=== PATIENT | female | born 1940 | race Caucasian/White ===

== ENCOUNTER → 2016-10-22 | Outpatient (CLI) | payer OTHER | LOC: FIMAGING 13:54 | PROVIDERS: ATTEND Family Medicine | DX: M25.562 Pain in left knee (principal); M25.462 Effusion, left knee; M51.36 Other intervertebral disc degeneration, lumbar region; M54.10 Radiculopathy, site unspecified; R91.1 Solitary pulmonary nodule; Z79.899 Other long term (current) drug therapy ==

== ENCOUNTER → 2016-12-02 | Outpatient (CLI) | payer OTHER | LOC: FIMAGING 08:35 | PROVIDERS: ATTEND Family Medicine | DX: R91.8 Other nonspecific abnormal finding of lung field (principal); E04.2 Nontoxic multinodular goiter ==

== ENCOUNTER → 2017-01-01 | Outpatient (CLI) | payer OTHER | LOC: FIMAGING 08:01 | PROVIDERS: ATTEND Physical Medicine & Rehabilitation | DX: S83.282A Other tear of lateral meniscus, current injury, left knee, initial encounter (principal); S83.242A Other tear of medial meniscus, current injury, left knee, initial encounter; R60.0 Localized edema; M25.462 Effusion, left knee ==

== ENCOUNTER 2017-01-21 07:18 | Day surgery (SDC) | payer OTHER ==
[2017-01-21] MEDS ORDERED: MIDAZOLAM 2 MG/2 ML VIAL IVP PRN (07:32)
[2017-01-21] MEDS ORDERED: fentaNYL 100 MCG/2 ML INJ IVP PRN (07:32)
[2017-01-21] MEDS ORDERED: MEPERIDINE 25 MG/ML SYR IVP PRN (07:32)
[2017-01-21] MEDS ORDERED: ALTEPLASE 2 MG VIAL IVP PRN (07:32)
[2017-01-21] MEDS ORDERED: FLUMAZENIL 0.5 MG/5 ML MDV IVP PRN (07:32)
[2017-01-21] MEDS ORDERED: NALOXONE HCL 0.4 MG/ML INJ IVP PRN (07:32)
[2017-01-21] MEDS ORDERED: NS 1,000 ML IV SCH (07:45)
[2017-01-21 07:57] VITALS: PULSE 80; RESP 19
[2017-01-21 08:06] VITALS: TEMP 99.1
--- NOTE | 2017-01-21 09:17 | PDPROPOC ---
Sedation Plan of Care Sedation Plan of Care: vital signs stable ASA Classification: ASA 2 Planned drugs: fentanyl, midazolam Mallampati Score: Class 2 Mallampati Reference Image: Patient passed 3-3-2 rule?: Yes
--- NOTE | 2017-01-21 09:17 | PDGENHP ---
History & Physical Chief Complaint: Left upper lobe lung lesion History of Present Illness: Left upper lobe lung lesion. pt otherwise asymptomatic. Pertinent Past, Social, Family History: non smoker Relevant Physical Exam: clear lungs, RRR Cardiorespiratory Assessment: RRR & clear lungs
--- NOTE | 2017-01-21 11:23 | PDRADPN ---
Radiology Procedure Note Date of Procedure: 01/21/17 Radiologist: Venu Quintero Licensed Master Social Worker(s): Hernando Orozco rehabilitation team lead Anesthesia: IV Sedation (fentanyl and versed) Pre-op Diagnosis: left upper lobe pulmonary nodule Post-op Diagnosis: same Indication: left upper lobe pulmonary nodule Procedure: CT guided left upper lobe biopsy Finding(s): 1. pulmonary hemorrage and tiny pneumothorax on CT Inf/Abcess present in the surg proc area at time of surgery?: No EBL: Minimal (less than 5cc) Complications: tiny pneumothorax and pulmonary hemorrhage at bx site in left upper lobe Specimen(s): 18 ga cores x 3, wet prep cellular
[2017-01-21 14:15] VITALS: BP 135/84; O2SAT 92
== END 2017-01-21 14:25 | disposition home or self-care (01) ==
LOC: FLAB 07:18 → FIMAGING 14:25
PROVIDERS: ATTEND Internal Medicine Hematology & Oncology
PROC: 0BBG3ZX Excision of Left Upper Lung Lobe, Percutaneous Approach, Diagnostic (ICD-10-PCS; principal; 2017-01-21 10:50)
DX: C34.12 Malignant neoplasm of upper lobe, left bronchus or lung (principal); E03.9 Hypothyroidism, unspecified; E21.0 Primary hyperparathyroidism; J95.811 Postprocedural pneumothorax; J95.830 Postprocedural hemorrhage of a respiratory system organ or structure following a respiratory system procedure
CPT/HCPCS: J2250; J2310; J3010

== ENCOUNTER → 2017-01-25 | Outpatient (CLI) | payer OTHER | LOC: FIMAGING 14:25 | PROVIDERS: ATTEND Internal Medicine Hematology & Oncology | DX: E04.9 Nontoxic goiter, unspecified (principal) ==

== ENCOUNTER 2017-02-08 05:22 | Inpatient (IN) | payer OTHER ==
[2017-02-08] MEDS ORDERED: LIDOCAINE 1% 2 ML INJ ID PRN (06:01)
[2017-02-08] MEDS ORDERED: LR 1,000 ML IV ONE (06:01)
[2017-02-08] MEDS ORDERED: BUPIVACAINE 0.5% 30 ML SDV ONE (06:31)
[2017-02-08] MEDS ORDERED: ceFAZolin 2 GM/SWFI 2 GM/20 ML SYR IVP ONE (06:36)
[2017-02-08 06:44] LABS: ALANINE AMINOTRANSFERASE 29 IU/L (9-52); ALKALINE PHOSPHATASE 94 IU/L (38-126); ANION GAP 11 mEq/L (8-16); ASPARTATE AMINOTRANSFERASE 27 IU/L (14-46); BILIRUBIN,TOTAL 0.5 mg/dL (0.1-1.4); CALCIUM 9.7 mg/dL (8.5-10.4); CARBON DIOXIDE 26 mEq/l (22-31); CHLORIDE 107 mEq/L (97-110); CREATININE 0.6 mg/dL (0.6-1.0); GLOMERULAR FILTRATION RATE > 60; GLUCOSE 95 mg/dL (70-100); POTASSIUM 4.3 mEq/L (3.5-5.2); SODIUM 144 mEq/L (134-144); TOTAL PROTEIN 6.9 g/dL (6.3-8.2)
--- NOTE | 2017-02-08 06:45 | PDANEPAE ---
ANE History of Present Illness 76 year old female w/ newly diagnosed lung CA presents for VATS w/ left upper lobectomy. ANE Past Medical History - Cardiovascular History Hx Hypertension: No Hx Arrhythmias: No Hx Chest Pain: No Hx Coronary Artery / Peripheral Vascular Disease: No Hx CHF / Valvular Disease: No Hx Palpitations: No - Pulmonary History Hx COPD: No Hx Asthma/Reactive Airway Disease: No Hx Recent Upper Respiratory Infection: No Hx Oxygen in Use at Home: Yes O2 in Use at Home (L/minute): 2.L Hx Sleep Apnea: Yes Sleep Apnea Screening Result - Last Documented: Positive Pulmonary History Comment: JAREK, does not use machine - Neurologic History Hx Cerebrovascular Accident: No Hx Seizures: No Hx Dementia: No - Endocrine History Hx Diabetes: No Obesity: no - Renal History Hx Renal Disorders: No - Liver History Hx Hepatic Disorders: No - Neurological & Psychiatric Hx Hx Neurological and Psychiatric Disorders: Yes Neurological / Psychiatric History Comment: anxiety - Cancer History Hx Cancer: Yes Cancer History Comment: new diagnosis - Congenital Disorder History Hx Congenital Disorders: No - GI History Hx Gastrointestinal Disorders: No - Other Health History Other Health History: none - Chronic Pain History Chronic Pain: Yes (left knee) - Surgical History Prior Surgeries: r hip replace 5 years. c section. parathroid. appy. tonsils adenoids ANE Review of Systems Review of systems is: negative Review of Systems: - Exercise capacity Exercise capacity: >=4 METS METS (RN): 4 METS ANE Patient History - Allergies Allergies/Adverse Reactions: ciprofloxacin [From Cipro] Allergy (Severe, Verified 02/05/17 15:52) HIVES, RASH ciprofloxacin HCl [From Cipro] Allergy (Severe, Verified 02/05/17 15:52) HIVES, RASH Iodinated Contrast- Oral and IV Dye Allergy (Severe, Verified 02/08/17 06:05) Sulfa (Sulfonamide Antibiotics) Allergy (Severe, Verified 02/05/17 15:52) HIVES, RASH - Home Medications Home medications: home medication list seen and reviewed Home Medications: Mirtazapine [Remeron] 30 mg PO HS 02/05/17 [Last Taken 02/07/17 21:00] Naproxen Sodium [Aleve 220 MG (*)] 440 mg PO DAILY PRN 02/05/17 [Last Taken ] RX: Levothyroxine Sodium 100 mcg PO DAILY 02/05/17 [Last Taken 02/08/17 04:15] Symbicort 80-4.5 Mcg Inhaler 02/05/17 [Last Taken 02/07/17] traMADol [Ultram 50 mg (*)] 50 - 100 mg PO Q6 PRN 02/05/17 [Last Taken 02/07/17 21:00] - NPO status NPO Status: no food or drink >8 hours NPO Since - Liquids (Date): 02/07/17 NPO Since - Liquids (Time): 21:00 NPO Since - Solids (Date): 02/07/17 NPO Since - Solids (Time): 18:00 - Anes Hx Anes Hx: no prior problems - Smoking Hx Smoking Status: Never smoked - Family Anes Hx Family Anes Hx: neg - N/A Family Hx Anesthesia Complications: none ANE Labs/Vital Signs - Labs Result Diagrams: 02/08/17 06:15 - Vital Signs Vital Signs: reviewed preoperatively; see RN documention for details Blood Pressure: 109/68 Heart Rate: 89 Respiratory Rate: 20 O2 Sat (%): 95 Height: 165.1 cm Weight: 61.235 kg ANE Physical Exam - Airway Neck exam: FROM Mallampati Score: Class 2 Mouth exam: normal dental/mouth exam - Pulmonary Pulmonary: no respiratory distress - Cardiovascular Cardiovascular: regular rate and rhythym - ASA Status ASA Status: III ANE Anesthesia Plan Anesthesia Plan: general endotracheal anesthesia (Possible arterial line. Epidural for POPC if converted from VATS to open thoracotomy.), epidural (Will consent for epidural for post-op pain control should surgery transition from VATS to thoracotomy.) Lines/Monitors: arterial line, additional IV Specialized Airway: double lumen tube, video laryngoscope Total IV Anesthesia: No
[2017-02-08] MEDS ORDERED: MIDAZOLAM 2 MG/2 ML VIAL IVP ONE (07:01)
[2017-02-08] MEDS ORDERED: MIDAZOLAM 2 MG/2 ML VIAL ONE (07:02)
[2017-02-08] MEDS ORDERED: PROPOFOL 200 MG/20 ML VIAL ONE (07:04)
[2017-02-08] MEDS ORDERED: fentaNYL 100 MCG/2 ML INJ ONE ×3 (07:04→11:08)
[2017-02-08] MEDS ORDERED: LIDOCAINE 2% 5 ML SDV ONE (07:05)
[2017-02-08] MEDS ORDERED: ROCURONIUM 50 MG/5 ML VIAL ONE (07:05)
[2017-02-08] MEDS ORDERED: PHENYLEPHRINE HCL 100 MCG/ML SYR ONE (07:05)
--- NOTE | 2017-02-08 07:54 | PDHPUP ---
History & Physical Update H&P update statement: This history and physical update is based on an assessment of the patient which was completed after admission or registration (within 24 hours), but prior to the surgery/procedure. H&P update: H&P reviewed & patient examined, no change in patient's condition since H&P completed
[2017-02-08] MEDS ORDERED: ONDANSETRON 4 MG/2 ML VIAL IVP PRN ×2 (08:32→10:36)
[2017-02-08] MEDS ORDERED: NALOXONE HCL 0.4 MG/ML INJ IVP PRN (08:32)
[2017-02-08] MEDS ORDERED: LABETALOL HCL 5 MG/ML 20 ML MDV IVP PRN (08:32)
[2017-02-08] MEDS ORDERED: LR 500 ML IV PRN (08:32)
[2017-02-08] MEDS ORDERED: ACETAMINOPHEN 500 MG TAB PO PRN (08:32)
[2017-02-08] MEDS ORDERED: SUGAMMADEX SODIUM 200 MG/2 ML VIAL IVP ONE (09:42)
--- NOTE | 2017-02-08 10:40 | POSTOPPROG ---
Post Op Note Date of Operation: 02/08/17 Surgeon: Camilo Rowan Custodial Maintenance Worker: Tania Rachel Anesthesiologist: Gage Olmos Anesthesia: GET(General Endotracheal) Pre-op Diagnosis: JULIA lung cancer Post-op Diagnosis: same Procedure: L VATS c JULIA lobectomy and hilar LN biopsies Findings: tumor in specimen, bronchial margin clear on froz., poorly defined fissure Inf/Abcess present in the surg proc area at time of surgery?: No EBL: 50-100 Complications: none Drains: Other (2 28 Fr Chest tubes)
[2017-02-08] MEDS ORDERED: HYDROmorphONE/DILAUDID 1 MG/ML INJ ONE ×2 (11:08→11:39)
[2017-02-08] MEDS: fentaNYL 100 MCG/2 ML INJ IVP PRN ×2 (11:12→11:18)
[2017-02-08] MEDS: HYDROmorphONE/DILAUDID 1 MG/ML INJ IVP PRN ×8 (11:14→18:44)
[2017-02-08] MEDS: OXYCODONE/APAP 5/325 TAB PO PRN ×2 (12:48→16:42)
[2017-02-08] MEDS: BUPIVACAINE 0.5% 30 ML SDV MISC SCH ×3 (14:29→23:11)
--- NOTE | 2017-02-08 15:36 | POSTANESTH ---
Post Anesthetic Evaluation Cardiovascular Status: Normal, Stable, Similar to Pre-Op Cond Respiratory Status: Normal, Stable, Similar to Pre-op Cond. Level of Consciousness/Mental Status: Can Participate in Eval, Alert and Oriented Pain Control: Adequate, Prn Tx Ordered Nausea/Vomiting Control: Adequate, Prn Tx Ordered Complications Possibly Related to Anesthesia: None Noted
--- NOTE | 2017-02-08 16:19 | ASMTCMCOM ---
CM Note CM Note Notes: 76 year old female admitted for L UL adenocarcinoma. She has a hx of JAREK, IBS, Insomnia, Anxiety/Depression. Patient to have a VATS procedure, lobectomy possible thoracotomy. CM to follow for discharge needs. Date Signed: 02/08/2017 04:18 PM Electronically Signed By:Judi Mart LCSW
[2017-02-08] MEDS: ONDANSETRON 4 MG/2 ML VIAL IVP PRN (18:10)
[2017-02-08] MEDS: DOCUSATE SODIUM 100 MG CAP PO SCH (19:55)
[2017-02-08] MEDS: MIRTAZAPINE 30 MG TAB PO SCH (19:55)
[2017-02-08] MEDS: NS 1,000 ML IV SCH (20:06)
[2017-02-08] MEDS: BUDESONIDE/FORMOTEROL 80/4.5 60 PUFFS/MDI IH SCH (20:34)
--- NOTE | 2017-02-08 21:43 | SOAPPROG ---
SOAP Progress Note Assessment/Plan: Assessment: POSTOP ALERT, BP SOFT, UO GOOD, CHEST TUBE WITH MINIMAL LEAK AND MODERATE DRAINAGE/ PAIN CONTROL GOOD CXR WELL EXPANDED Plan:FLUID BOLUS/ CHECK HCT 02/08/17 21:41 Objective: Vital Signs Temp Pulse Resp BP Pulse Ox 36.5 C 80 20 104/56 L 99 02/08/17 19:00 02/08/17 20:41 02/08/17 20:41 02/08/17 19:00 02/08/17 19:00 Laboratory Results 02/08/17 06:15 02/07/17 02/08/17 02/09/17 05:59 05:59 05:59 Intake Total 1070 Output Total 420 Balance 650 ICD10 Worksheet Patient Problems: Problems Problem Status Onset Lung cancer Acute - ICD10 Problem Qualifiers (1) Lung cancer Qualifiers: Laterality: left Lung location: upper lobe of lung Qualified Code(s): C34.12 - Malignant neoplasm of upper lobe, left bronchus or lung
[2017-02-08 22:00] LABS: HEMATOCRIT 35.4 % (38.0-47.0); HEMOGLOBIN 11.7 g/dL (12.6-16.3)
--- NOTE | 2017-02-08 23:16 | GOP ---
[f rep st] OPERATIVE REPORT DATE OF OPERATION: SURGEON: Camilo Rowan MD OUTSIDE COLLECTOR: Tania Rachel, CARIDAD ANESTHESIOLOGIST: Gage Olmos MD. PREOPERATIVE DIAGNOSIS: Left upper lobe lung cancer. POSTOPERATIVE DIAGNOSIS: Left upper lobe lung cancer. PROCEDURE PERFORMED: 1. Video-assisted thoracoscopic surgery left upper lobectomy. 2. Video-assisted thoracoscopic surgery hilar node dissection. FINDINGS: The patient was found to have a 1.5 cm tumor in the posterior aspect of the left upper lob e. There was no evidence of any metastatic disease. Lymph nodes in the hilum appeared to be benign. Final path is pending. ESTIMATED BLOOD LOSS: Approximately 200 cc. DESCRIPTION OF PROCEDURE: Patient taken to the operating room, where she received satisfactory gener al endotracheal anesthesia by Dr. Olmos. She was placed in the right lateral decubitus position aft er placement of a double-lumen endotracheal tube and an arterial line. Prepped and draped in the usu al sterile fashion. A short incision was made in the 7th intercostal space in the midaxillary line. A trocar was introduced. Good visualization was obtained. Two other trocars placed up higher in th e chest anteriorly and posteriorly. The lungs were evaluated. Unfortunately, she had a complete fus ion of her fissures, requiring complete dissection of the major fissure all the way down. This was c arefully done as well as possible. The main pulmonary artery was identified. Branches to the lingul a and to the posterior segment of the upper lobe were identified. These were dissected free and divi ded with the Endo-TULIO stapler. The lung was then rolled more posteriorly and the anterior pleura was opened and divided over the apical and anterior branches to the upper lobe. These were also dissect ed free and eventually divided with the Endo-TULIO stapler. The superior pulmonary vein was then disse cted free. It too was encircled and then divided with the Endo-TULIO stapler. All staple lines appear ed to be hemostatic. The upper lobe bronchus was then isolated and encircled. It was crossclamped a nd then the lower lobe was ventilated and appeared to ventilate perfectly fine so the bronchus was th en stapled and divided with the Endo-TULIO stapler. Remaining connections of the fissure up above this area were also divided with the Endo-TULIO stapler. The lung was placed in a specimen bag. One of th e trocar sites was enlarged, and the lung was brought out through that. It was sent to Pathology for evaluation and appeared to have clear margins. The wound was examined. The lung was tested and the re appeared to be no leak in the bronchial closure, but there was an air leak in the apical segment o f the lower lobe. This was attempted to be sutured, but met with a significant amount of bleeding an d that attempt was discontinued. The bleeding was tamponaded and stopped. It was covered with some Damaso powder. Multiple hilar nodes were dissected free and removed and sent to Pathology. 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 Final path is pending. Two 28 chest tubes were brought in through some of the trocar sites and placed in the apex of the deirdre st anteriorly and posteriorly. A Marcaine catheter was brought in through a separate stab incision a nd placed posteriorly for later Marcaine infusions. The chest was then closed with a running 0 Vicry l suture for the muscular layers over the mini incision, that was closed with 3-0 Vicryl for the subc u and 4-0 Monocryl subcuticular stitch for the skin. The remaining trocar site was also closed with 4-0 Monocryl. All wounds were infiltrated with 0.5% Marcaine. Chest tubes were secured to the skin with silk sutures, as was the Marcaine catheter. She tolerated the procedure quite well. COMPLICATIONS: None. /[id number]/MODL
[2017-02-09] MEDS: HYDROmorphONE/DILAUDID 1 MG/ML INJ IVP PRN ×5 (00:30→10:08)
[2017-02-09] MEDS: OXYCODONE/APAP 5/325 TAB PO PRN ×4 (02:14→21:54)
[2017-02-09] MEDS: BUPIVACAINE 0.5% 30 ML SDV MISC SCH ×5 (02:39→14:27)
--- NOTE | 2017-02-09 03:03 | GCON ---
[f rep st] CONSULTATION GOLD LETTERER CONSULTATION REASON FOR ADMISSION: Status post left upper lobectomy. HISTORY OF PRESENT ILLNESS: The patient is a very pleasant 76-year-old white female with a past medi daniel history including irritable bowel syndrome, obstructive sleep apnea, dysphagia, primary hyperpara thyroidism, pulmonary hypertension, depression, anxiety. She underwent a left upper lobectomy for faiza ng cancer that was diagnosed by needle biopsy. She is a patient of Dr. Juana Zuniga. In discussion w ith the patient, she states that with the exception of back pain, she is doing quite well. She does have trouble taking a deep breath secondary to pain. There is no cough or productive sputum. She de nies any fever or night sweats. There is no nausea, vomiting, or diarrhea. PAST MEDICAL HISTORY: Again, significant for anxiety, depression, hypothyroidism, irritable bowel sy ndrome, obstructive sleep apnea, primary hyperparathyroidism, pulmonary hypertension. PAST SURGICAL HISTORY: Has had a left parathyroidectomy, hip replacement, and arthroscopic knee surg yamilex. ALLERGIES: To Cipro, iodine, sulfa. FAMILY HISTORY: Significant for colon cancer and congestive heart failure. MEDICATIONS: At home include Aleve, Imodium, mirtazapine, Symbicort, Synthroid, vitamin B12, vitamin D3. PHYSICAL EXAM: VITAL SIGNS: Blood pressure 123/59, pulse is 77, respiration 18, she is afebrile. O xygen saturation 100% on 4 L. GENERAL: She is a thin, well-developed, elderly white female, who is resting comfortably in no acute distress. HEENT: Eyes are PERRLA, EOMI. Throat shows no erythema o r tonsillar hypertrophy. NECK: Supple. No cervical adenopathy. HEART: Regular rate and rhythm wi thout murmurs, rubs, or gallops. LUNGS: Diminished breath sounds. A few crackles on the left, but no wheeze. ABDOMEN: Soft, nontender. Bowel sounds are present in all 4 quadrants. EXTREMITIES: N o clubbing, cyanosis, or edema. LABORATORIES: White count is 144, potassium 4.3, chloride 107, CO2 is 26, BUN 16, creatinine 0.6, gl ucose is 95. Chest x-ray shows no evidence of pneumothorax. There is subcu emphysema. IMPRESSION: 1. Lung cancer. 2. Status post left upper lobectomy. 3. Pain adequately controlled. 4. Hyperparathyroidism. 5. Hypothyroidism. 6. Anxiety and depression. 7. History of asthma. RECOMMENDATIONS: 1. Adequate pain control. 2. Deep venous thrombosis and pulmonary embolism prophylaxis. 3. Stress ulcer prophylaxis. 4. Nebulized using both albuterol and Atrovent. 5. Early ambulation. /[id number]/MODL
[2017-02-09 05:01] LABS: HEMATOCRIT 36.7 % (38.0-47.0)
[2017-02-09 05:21] LABS: ANION GAP 8 mEq/L (8-16); CARBON DIOXIDE 26 mEq/l (22-31); CHLORIDE 108 mEq/L (97-110); CREATININE 0.5 mg/dL (0.6-1.0); GLOMERULAR FILTRATION RATE > 60; GLUCOSE 96 mg/dL (70-100); POTASSIUM 4.1 mEq/L (3.5-5.2); SODIUM 142 mEq/L (134-144)
[2017-02-09] MEDS: NS 1,000 ML IV SCH (05:56)
[2017-02-09 06:10] LABS: CALCIUM 8.7 mg/dL (8.5-10.4)
[2017-02-09] MEDS: LEVOTHYROXINE 100 MCG TAB PO SCH (08:17)
[2017-02-09] MEDS: DOCUSATE SODIUM 100 MG CAP PO SCH ×2 (08:17→21:55)
[2017-02-09] MEDS: ONDANSETRON 4 MG/2 ML VIAL IVP PRN (08:17)
--- NOTE | 2017-02-09 08:44 | SOAPPROG ---
SOAP Progress Note Assessment/Plan: Assessment/Plan: 76 Y F s/p L VATS c JULIA lobectomy, lung CA, POD#1. Doing well. Some hypotension overnight. Marcaine held and cautious use of narcotics. Add toradol today. H&H ok. BMP ok. Air leak significantly smaller. CXR ok. Joiner out, void trial. Regular diet. Buff cap IVF. VTE ppx tomorrow with lovenox. S: biggest fear is pain. mostly comfortable now. denies sob. O: alert, siting oob in chair mmm ctab rrr abd soft wounds well dressed small air leak 02/09/17 08:42 Objective: Vital Signs Temp Pulse Resp BP Pulse Ox 36.8 C 84 21 H 97/42 L 100 02/09/17 08:00 02/09/17 08:00 02/09/17 08:00 02/09/17 08:00 02/09/17 08:00 Laboratory Results 02/09/17 04:45 02/09/17 04:45 02/08/17 02/09/17 02/10/17 05:59 05:59 05:59 Intake Total 3344 Output Total 1250 Balance 2094 ICD10 Worksheet Patient Problems: Problems Problem Status Onset Lung cancer Acute
[2017-02-09] MEDS: BUDESONIDE/FORMOTEROL 80/4.5 60 PUFFS/MDI IH SCH ×2 (09:02→21:59)
--- NOTE | 2017-02-09 09:19 | PDINTPN ---
Distributor Sales Manager Progress Note Assessment/Plan: Assessment/plan: * Lung cancer * Status post left upper lobectomy * Pain-marginally controlled -continue current pain meds, mindful of patient's soft blood pressure * Chest tube-still with small leak. Moderate output. -not ready to be removed. * Hypothyroid * Pulmonary hypertension-likely secondary to sleep apnea * Obstructive sleep apnea * VTE prophylaxis * PT/OT * Out of bed 25 min of critical care time spent with patient. More than half spent counseling or coordination care. Subjective: Sitting up in chair. Complains of back pain. Denies any breathlessness except with deep inspiration. Objective: Vital Signs Temp Pulse Resp BP Pulse Ox 36.8 C 84 21 H 97/42 L 100 02/09/17 08:00 02/09/17 08:00 02/09/17 08:00 02/09/17 08:00 02/09/17 08:00 Laboratory Results 02/09/17 04:45 02/09/17 04:45 02/08/17 02/09/17 02/10/17 05:59 05:59 05:59 Intake Total 3344 Output Total 1250 Balance 2094 Chest [id number] by myself. Chest tube in place. There is a small left apical pneumothorax present. Hyperinflated lungs are present Physical Exam - Physical Exam General Appearance: alert, mild distress EENT: PERRL/EOMI, normal ENT inspection Neck: non-tender, full range of motion Respiratory: crackles (Left), No normal breath sounds, No respiratory distress, No accessory muscle use Cardiac/Chest: normal peripheral pulses, regular rate, rhythm, systolic murmur Peripheral Pulses: 2+: carotid (R), carotid (L), femoral (R), femoral (L), dorsalis-pedis (R), dorsalis-pedis (L) Abdomen: normal bowel sounds, non-tender, soft Pelvic Exam: deferred Rectal: deferred Skin: normal color, warm/dry Extremities: normal range of motion, non-tender, normal inspection, normal capillary refill Neuro/Psych: no motor/sensory deficits, alert, normal mood/affect, oriented x 3 ICD10 Worksheet Patient Problems: Problems Problem Status Onset Lung cancer Acute
[2017-02-09] MEDS ORDERED: KETOROLAC 30 MG/1 ML SDV IVP ONE (10:30)
[2017-02-09] MEDS ORDERED: KETOROLAC 15 MG/1 ML SDV IVP SCH (12:00)
[2017-02-09] MEDS ORDERED: HYDROmorphone HCL/NS/PF 0.4 MG/2 ML SYR IVP PRN (16:30)
[2017-02-09] MEDS: KETOROLAC 15 MG/1 ML SDV IVP SCH ×2 (18:18→23:20)
[2017-02-09] MEDS: BUPIVACAINE 0.5% 10 ML SDV MISC SCH ×2 (18:19→21:54)
[2017-02-09] MEDS: MIRTAZAPINE 30 MG TAB PO SCH (21:56)
[2017-02-09] MEDS: diphenhydrAMINE 25 MG CAP PO PRN (23:19)
[2017-02-10] MEDS: OXYCODONE/APAP 5/325 TAB PO PRN ×3 (02:55→21:10)
[2017-02-10] MEDS: BUPIVACAINE 0.5% 10 ML SDV MISC SCH ×6 (04:23→23:43)
[2017-02-10] MEDS: KETOROLAC 15 MG/1 ML SDV IVP SCH ×4 (06:04→23:03)
[2017-02-10] MEDS: LEVOTHYROXINE 100 MCG TAB PO SCH (08:45)
[2017-02-10] MEDS: DOCUSATE SODIUM 100 MG CAP PO SCH ×2 (08:45→21:10)
[2017-02-10] MEDS: ENOXAPARIN 40 MG/0.4 ML SYR SC SCH (08:45)
[2017-02-10] MEDS: BUDESONIDE/FORMOTEROL 80/4.5 60 PUFFS/MDI IH SCH ×2 (09:01→21:22)
[2017-02-10] MEDS: MIRTAZAPINE 30 MG TAB PO SCH (21:11)
[2017-02-10] MEDS: BUPIVACAINE 0.5% 30 ML SDV MISC SCH (23:02)
[2017-02-11] MEDS: BUPIVACAINE 0.5% 30 ML SDV MISC SCH ×6 (05:54→21:05)
[2017-02-11] MEDS: KETOROLAC 15 MG/1 ML SDV IVP SCH ×4 (06:09→23:49)
[2017-02-11] MEDS: OXYCODONE/APAP 5/325 TAB PO PRN ×2 (06:11→21:00)
[2017-02-11] MEDS: LEVOTHYROXINE 100 MCG TAB PO SCH (09:05)
[2017-02-11] MEDS: DOCUSATE SODIUM 100 MG CAP PO SCH ×2 (09:05→21:00)
[2017-02-11] MEDS: ENOXAPARIN 40 MG/0.4 ML SYR SC SCH (09:05)
[2017-02-11] MEDS: BUDESONIDE/FORMOTEROL 80/4.5 60 PUFFS/MDI IH SCH ×2 (09:13→20:53)
[2017-02-11] MEDS: diphenhydrAMINE 25 MG CAP PO PRN (10:14)
--- NOTE | 2017-02-11 10:42 | SOAPPROG ---
ARIN Progress Note Assessment/Plan: Assessment: 76-year-old female status post left VATS, history of lung cancer on biopsy prior to surgery, pathology from surgery demonstrates adenocarcinoma with negative margins, negative lymph nodes Patient's pain well controlled, tolerating regular diet Physical exam Awake alert Chest CTA bilaterally left chest tube in place no leak Abdomen soft nontender Plan: Patient chest tube taken off suction, we will get follow-up x-ray and possibly remove chest tube later today. Preliminary read of x-ray does not demonstrate a large pneumothorax, will await radiology report 02/11/17 10:41 Objective: Vital Signs Temp Pulse Resp BP Pulse Ox 36.6 C 75 20 114/70 94 02/11/17 08:00 02/11/17 08:00 02/11/17 08:00 02/11/17 08:00 02/11/17 08:00 Laboratory Results 02/09/17 04:45 02/09/17 04:45 02/10/17 02/11/17 02/12/17 05:59 05:59 05:59 Intake Total 350 Output Total 520 200 Balance -520 150 ICD10 Worksheet Patient Problems: Problems Problem Status Onset Lung cancer Acute
--- NOTE | 2017-02-11 17:07 | ASMTCMCOM ---
CM Note CM Note Notes: Spoke w/RN, anticipate pt will dc home w/support of when medically stable. CM available for any changes. Date Signed: 02/11/2017 05:07 PM Electronically Signed By:Ena Moreland RN
[2017-02-11] MEDS: MIRTAZAPINE 30 MG TAB PO SCH (21:00)
[2017-02-12] MEDS: OXYCODONE/APAP 5/325 TAB PO PRN (02:23)
[2017-02-12] MEDS: diphenhydrAMINE 25 MG CAP PO PRN (02:28)
[2017-02-12] MEDS: BUPIVACAINE 0.5% 30 ML SDV MISC SCH ×4 (04:52→17:50)
[2017-02-12] MEDS: KETOROLAC 15 MG/1 ML SDV IVP SCH ×2 (05:17→12:38)
[2017-02-12 08:38] VITALS: RESP 20
[2017-02-12] MEDS: BUDESONIDE/FORMOTEROL 80/4.5 60 PUFFS/MDI IH SCH (09:07)
[2017-02-12] MEDS: LEVOTHYROXINE 100 MCG TAB PO SCH (09:16)
[2017-02-12] MEDS: ENOXAPARIN 40 MG/0.4 ML SYR SC SCH (09:16)
[2017-02-12] MEDS ORDERED: LOPERAMIDE HCL 1 MG/5 ML UDCUP PO PRN (10:14)
--- NOTE | 2017-02-12 10:41 | SOAPPROG ---
SOAP Progress Note Assessment/Plan: Assessment: 76-year-old female status post left VATS, history of lung cancer on biopsy prior to surgery, pathology from surgery demonstrates adenocarcinoma with negative margins, negative lymph nodes PTX after chest tube removal, drainage Patient's pain well controlled, tolerating regular diet Physical exam Awake alert Chest CTA bilaterally Abdomen soft nontender Plan: xray today and if stable discharge, gave patient pain med script for possible d/ c later or in AM 02/11/17 10:41 02/12/17 10:40 Objective: Vital Signs Temp Pulse Resp BP Pulse Ox 36.4 C 78 20 123/74 H 99 02/12/17 08:00 02/12/17 08:00 02/12/17 08:00 02/12/17 08:00 02/12/17 08:00 Laboratory Results 02/09/17 04:45 02/09/17 04:45 02/11/17 02/12/17 02/13/17 05:59 05:59 05:59 Intake Total 350 1050 Output Total 200 100 Balance 150 1050 -100 ICD10 Worksheet Patient Problems: Problems Problem Status Onset Lung cancer Acute
[2017-02-12] MEDS ORDERED: HYDROmorphONE/DILAUDID 1 MG/ML INJ IVP PRN (15:10)
[2017-02-12 15:36] VITALS: BP 122/84; PULSE 98; TEMP 97; O2SAT 90
--- NOTE | 2017-02-12 17:04 | ASDISCHSUM ---
Discharge Information Plan Status:Home with No Needs Medically Cleared to Leave: Discharge Date:02/12/2017 04:21 PM CM D/C Disposition:Home, Routine, Self-Care ADT D/C Disposition:Home, Routine, Self-Care Projected Discharge Date:02/12/2017 04:21 PM Transportation at D/C: Discharge Delay Reason: Follow-Up Date:02/12/2017 04:21 PM Discharge Slot: Final Diagnosis: Placement Information Patient Contact Information Contact Name:KIYA Relationship: Address:[address] [place] [address] City:[place] Alternate Phone: [facility]/Zip Code:[place] [address] Email: Financial Information Financial Class:Medicare Advantage Plans Primary Plan Desc:[facility] ADVANTAGE PLANS Primary Plan Number:[id number] Secondary Plan Desc: Secondary Plan Number: Assessment Information [facility] CM Progress Note CM Note CM Note Notes: 76 year old female admitted for L UL adenocarcinoma. She has a hx of JAREK, IBS, Insomnia, Anxiety/Depression. Patient to have a VATS procedure, lobectomy possible thoracotomy. CM to follow for discharge needs. Date Signed: 02/08/2017 04:18 PM Electronically Signed By:Judi Mart LCSW [facility] CM Progress Note CM Note CM Note Notes: Spoke w/RN, anticipate pt will dc home w/support of when medically stable. CM available for any changes. Date Signed: 02/11/2017 05:07 PM Electronically Signed By:Ean Moreland RN Intervention Information
[2017-02-12] MEDS: DOCUSATE SODIUM 100 MG CAP PO SCH (17:50)
== END 2017-02-12 16:21 | disposition home or self-care (01) | DRG 164 ==
LOC: F3E 05:22 → F2N 07:42 → F3E 02-09 12:56
PROVIDERS: ADMIT Surgery; ATTEND Surgery
PROC: 07B74ZX Excision of Thorax Lymphatic, Percutaneous Endoscopic Approach, Diagnostic (ICD-10-PCS; principal; 2017-02-08 07:15)
PROC: 0BBG4ZZ Excision of Left Upper Lung Lobe, Percutaneous Endoscopic Approach (ICD-10-PCS; principal; 2017-02-08 07:15)
PROC: 30233K1 Transfusion of Nonautologous Frozen Plasma into Peripheral Vein, Percutaneous Approach (ICD-10-PCS; principal; 2017-02-08 07:15)
DX: C34.12 Malignant neoplasm of upper lobe, left bronchus or lung (principal); J95.812 Postprocedural air leak; G47.33 Obstructive sleep apnea (adult) (pediatric); I27.23 Pulmonary hypertension due to lung diseases and hypoxia; G47.00 Insomnia, unspecified; K58.9 Irritable bowel syndrome, unspecified; F41.9 Anxiety disorder, unspecified; F32.9 Major depressive disorder, single episode, unspecified; J45.909 Unspecified asthma, uncomplicated; Z96.642 Presence of left artificial hip joint
CPT/HCPCS: J0171; J0690; J1170; J1650; J1885; J2250; J2370; J2405; J2704; J3010; P9016; P9017

== ENCOUNTER → 2017-02-16 | Outpatient (CLI) | payer OTHER | LOC: FIMAGING 10:24 | PROVIDERS: ATTEND Surgery | DX: J93.9 Pneumothorax, unspecified (principal); J95.812 Postprocedural air leak ==

== ENCOUNTER → 2017-02-23 | Outpatient (CLI) | payer OTHER, MEDICARE | LOC: FIMAGING 09:33 | PROVIDERS: ATTEND Surgery | DX: J93.9 Pneumothorax, unspecified (principal); J95.812 Postprocedural air leak ==

== ENCOUNTER → 2017-02-24 | Outpatient (CLI) | payer OTHER, MEDICARE | LOC: BHFA 13:15 | PROVIDERS: ATTEND Internal Medicine Cardiovascular Disease | DX: I27.20 Pulmonary hypertension, unspecified (principal); I05.9 Rheumatic mitral valve disease, unspecified ==

== ENCOUNTER → 2017-03-25 | Outpatient (CLI) | payer OTHER, MEDICARE | LOC: FIMAGING 09:21 | PROVIDERS: ATTEND Physician Assistant Surgical | DX: C34.12 Malignant neoplasm of upper lobe, left bronchus or lung (principal); Z90.2 Acquired absence of lung [part of] ==

== ENCOUNTER → 2017-04-01 | Outpatient (CLI) | payer OTHER, MEDICARE | LOC: FIMAGING 11:52 | PROVIDERS: ATTEND Physician Assistant Medical | DX: R06.89 Other abnormalities of breathing (principal); Z90.2 Acquired absence of lung [part of] ==

== ENCOUNTER → 2017-06-22 | Outpatient (CLI) | payer OTHER, MEDICARE | LOC: FIMAGING 12:26 | PROVIDERS: ATTEND Family Medicine | DX: M41.86 Other forms of scoliosis, lumbar region (principal); M43.16 Spondylolisthesis, lumbar region; M47.896 Other spondylosis, lumbar region; M51.36 Other intervertebral disc degeneration, lumbar region | CPT/HCPCS: 82607-90; 86334-90 ==

== ENCOUNTER 2018-07-01 12:33 | Emergency (ER) | payer OTHER, MEDICARE ==
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
--- NOTE | 2018-07-01 13:09 | CPEKG ---
Test Reason : OPEN Blood Pressure : / mmHG Vent. Rate : 086 BPM Atrial Rate : 086 BPM P-R Int : 155 ms QRS Dur : 081 ms QT Int : 359 ms P-R-T Axes : 054 037 045 degrees QTc Int : 430 ms Sinus rhythm Probable left atrial enlargement Confirmed by Danny Zaragoza ([id number]) on 07/01/2018 1:09:25 PM Referred By: Danny Zaragoza Confirmed By:Danny Zaragoza
[2018-07-01] MEDS ORDERED: TDAP ADULT 0.5 ML INJ (BOOSTRIX) IM ONE (13:16)
[2018-07-01 13:55] VITALS: BP 135/89
== END 2018-07-01 13:55 | disposition home or self-care (01) ==
LOC: EDUNIT#
DX: S00.81XA Abrasion of other part of head, initial encounter (principal); S20.219A Contusion of unspecified front wall of thorax, initial encounter; E03.9 Hypothyroidism, unspecified; Z85.118 Personal history of other malignant neoplasm of bronchus and lung; V49.49XA Driver injured in collision with other motor vehicles in traffic accident, initial encounter; Y92.410 Unspecified street and highway as the place of occurrence of the external cause; Z23 Encounter for immunization